=== PATIENT | male | born 1985 | race African-American/Black ===

== ENCOUNTER 2023-10-10 07:24 | Emergency (ER) | payer MEDICAID ==
[~2023-10-10] VITALS: Ht 182.9 cm; Wt 85.0 kg
[~2023-10-10 07:24] MED LIST: KEPP500 MT; POTA10TA20 MT
[2023-10-10 07:31] VITALS: O2SAT 99
[2023-10-10] MEDS: LEVETIRACETAM 500MG TABLET PO ONE (08:21)
[2023-10-10] MEDS: LEVETIRACETAM 500MG PREMIX 100 ML IV ONE (08:22)
[2023-10-10 10:06] VITALS: BP 154/93; PULSE 68; RESP 18; TEMP 98.3
== END 2023-10-10 10:09 | disposition home or self-care (01) ==
LOC: ER 07:24
DX: G40.909 Epilepsy, unspecified, not intractable, without status epilepticus (principal)
CPT/HCPCS: 99284; 96365; J1953

== ENCOUNTER 2023-10-16 11:37 | Emergency (ER) | payer MEDICAID ==
[~2023-10-16] VITALS: Ht 182.9 cm; Wt 70.0 kg
[2023-10-16 11:39] VITALS: TEMP 98.4; O2SAT 96
[2023-10-16 12:48] LABS: BASOPHILS % 0.4 % (0.0-2.0); EOSINOPHILS % 0.1 % (0.0-5.0); HEMATOCRIT. 38.5 % (42.0-52.0); LYMPHOCYTES % 13.4 % (20.0-50.0); MEAN CORPUSCULAR HEMOGLOBIN 31.7 pg (28.0-32.0); MEAN CORPUSCULAR HGB CONC 33.8 g/dL (31.0-37.0); MEAN CORPUSCULAR VOLUME 93.7 fL (80.0-94.0); MEAN PLATELET VOLUME 9.1 fl (7.4-10.4); MONOCYTES % 5.1 % (2.0-8.0); PLATELET 234 x1000/uL (130-400); RED BLOOD CELL COUNT 4.11 mill/uL (4.7-6.1); RED CELL DISTRIBUTION WIDTH 14.5 % (11.6-14.6)
[2023-10-16 12:51] LABS: CHLORIDE 100 mEq/L (98-107); SODIUM 138 mEq/L (136-145)
[2023-10-16 12:52] LABS: CARBON DIOXIDE 31 mEq/L (21-32)
[2023-10-16 12:57] LABS: CREATININE 1.1 mg/dL (0.6-1.3); GLUCOSE 99 mg/dL (70-105); UREA NITROGEN BLOOD 16 mg/dL (9-23)
[2023-10-16] MEDS: LEVETIRACETAM 500MG PREMIX 100 ML IV ONE ×2 (13:04)
[2023-10-16] MEDS: POTASSIUM CHLORIDE 20MEQ/PACKET PO NR (13:33)
[2023-10-16 17:04] VITALS: BP 128/81; PULSE 87; RESP 16
[2023-10-16] MEDS ORDERED: KEPP500 MT (17:59)
== END 2023-10-16 17:06 | disposition home or self-care (01) ==
LOC: ER 11:37
DX: R56.9 Unspecified convulsions (principal)
CPT/HCPCS: 99285; 96365; 70450; 80048; 85025; 36415; J1953

== ENCOUNTER 2023-11-03 07:06 | Emergency (ER) | payer MEDICAID ==
[~2023-11-03] VITALS: Ht 182.9 cm; Wt 76.0 kg
[2023-11-03 07:10] VITALS: TEMP 98; O2SAT 99
[2023-11-03 07:50] VITALS: BP 175/100; PULSE 65; RESP 12
[2023-11-03 07:50] LABS: BASOPHILS % 0.5 % (0.0-2.0); EOSINOPHILS % 0.8 % (0.0-5.0); HEMATOCRIT. 41.3 % (42.0-52.0); HEMOGLOBIN. 14.3 g/dL (14.0-18.0); LYMPHOCYTES % 18.2 % (20.0-50.0); MEAN CORPUSCULAR HEMOGLOBIN 31.6 pg (28.0-32.0); MEAN CORPUSCULAR HGB CONC 34.6 g/dL (31.0-37.0); MEAN CORPUSCULAR VOLUME 91.3 fL (80.0-94.0); MEAN PLATELET VOLUME 8.3 fl (7.4-10.4); MONOCYTES % 8.3 % (2.0-8.0); NEUTROPHILS % 72.2 % (40.0-76.0); PLATELET 244 x1000/uL (130-400); RED BLOOD CELL COUNT 4.53 mill/uL (4.7-6.1); WHITE BLOOD COUNT 6.9 x1000/uL (4.5-11.0)
[2023-11-03 07:54] LABS: CHLORIDE 102 mEq/L (98-107); POTASSIUM 3.6 mEq/L (3.5-5.1); SODIUM 142 mEq/L (136-145)
[2023-11-03 07:55] LABS: CALCIUM 9.8 mg/dL (8.7-10.4); CARBON DIOXIDE 34 mEq/L (21-32)
[2023-11-03 08:00] LABS: CREATININE 1.2 mg/dL (0.6-1.3); GLUCOSE 102 mg/dL (70-105); UREA NITROGEN BLOOD 19 mg/dL (9-23)
[2023-11-03 08:02] LABS: ALANINE AMINOTRANSFERASE 19 IU/L (10-49); ALBUMIN 4.8 g/dL (3.2-4.8); ASPARTATE AMINOTRANSFERASE 45 IU/L (<34); BILIRUBIN TOTAL 0.5 mg/dL (0.1-1.0)
[2023-11-03 08:03] LABS: PROTEIN TOTAL 7.9 g/dL (6.0-8.3)
[2023-11-03] MEDS: LEVETIRACETAM 500MG PREMIX 100 ML IV ONE ×2 (08:33→09:01)
[2023-11-03] MEDS: LACTATED RINGERS 1,000 ML IV SCH (08:34)
== END 2023-11-03 11:36 | disposition left against medical advice (07) ==
LOC: ER 07:06
DX: R56.9 Unspecified convulsions (principal)
CPT/HCPCS: 80053; 82962; 85025; 36415; 93005; 96365; 96375; 99284; J1953; Z7610 ×4

== ENCOUNTER 2023-11-28 06:28 | Emergency (ER) | payer MEDICAID ==
[~2023-11-28] VITALS: Ht 182.9 cm; Wt 73.0 kg
[2023-11-28 06:31] VITALS: O2SAT 100
[2023-11-28] MEDS: LEVETIRACETAM 1000MG PREMIX 100 ML IV ONE (07:04)
[2023-11-28 07:23] LABS: BASOPHILS % 0.3 % (0.0-2.0); HEMOGLOBIN. 13.3 g/dL (14.0-18.0); LYMPHOCYTES % 10.5 % (20.0-50.0); MEAN CORPUSCULAR HEMOGLOBIN 30.2 pg (28.0-32.0); MEAN CORPUSCULAR HGB CONC 33.2 g/dL (31.0-37.0); MEAN CORPUSCULAR VOLUME 91.1 fL (80.0-94.0); MEAN PLATELET VOLUME 8.4 fl (7.4-10.4); MONOCYTES % 3.1 % (2.0-8.0); NEUTROPHILS % 86.1 % (40.0-76.0); PLATELET 352 x1000/uL (130-400); RED BLOOD CELL COUNT 4.39 mill/uL (4.7-6.1); RED CELL DISTRIBUTION WIDTH 15.6 % (11.6-14.6); WHITE BLOOD COUNT 11.9 x1000/uL (4.5-11.0)
[2023-11-28 07:33] LABS: CHLORIDE 100 mEq/L (98-107); POTASSIUM 2.9 mEq/L (3.5-5.1); SODIUM 138 mEq/L (136-145)
[2023-11-28 07:34] LABS: CARBON DIOXIDE 22 mEq/L (21-32)
[2023-11-28 07:35] LABS: CALCIUM 9.8 mg/dL (8.7-10.4)
[2023-11-28 07:39] LABS: CREATININE 1.1 mg/dL (0.6-1.3)
[2023-11-28 07:40] LABS: ETHANOL BLOOD < 10 mg/dL (<10); GLUCOSE 116 mg/dL (70-105); UREA NITROGEN BLOOD 18 mg/dL (9-23)
[2023-11-28] MEDS: POTASSIUM CHLORIDE 20MEQ TABLET SR PO ONE (09:24)
[2023-11-28] MEDS: KCL 20MEQ/100ML PREMIX 100 ML IV ONE (10:37)
[2023-11-28 10:44] LABS: CLARITY URINE CLEAR (CLEAR); COLOR URINE YELLOW (YELLOW); GLUCOSE URINE NEGATIVE (NEGATIVE); KETONES URINE 3+ (NEGATIVE); LEUKOCYTE ESTERASE URINE NEGATIVE (NEGATIVE); NITRITE URINE NEGATIVE (NEGATIVE); OCCULT BLOOD URINE 1+ (NEGATIVE); PH URINE 5.5 (4.5-8.0); PROTEIN URINE 1+ (NEGATIVE); SPECIFIC GRAVITY URINE 1.014 (1.005-1.030); UROBILINOGEN URINE 0.2 E.U./dL (0.2-1.0)
[2023-11-28 10:58] LABS: SQUAMOUS EPITHELIAL CELL URINE RARE /lpf (RARE/1+)
[2023-11-28 10:59] LABS: WBC URINE 0-2 /hpf (0-2)
[2023-11-28 11:00] LABS: RBC URINE NONE SEEN /hpf (0-2)
[2023-11-28 11:01] LABS: BACTERIA URINE NONE SEEN
[2023-11-28 11:26] LABS: *AMPHETAMINES SCREEN URINE NEGATIVE (NEGATIVE)
[2023-11-28 11:27] LABS: *BENZODIAZEPINES SCREEN URINE PRESUMPTIVE POSITIVE (NEGATIVE)
[2023-11-28 11:28] LABS: *BARBITURATES SCREEN URINE NEGATIVE (NEGATIVE); *COCAINE SCREEN URINE NEGATIVE (NEGATIVE); CANNABINOID URINE SCREEN PRESUMPTIVE POSITIVE (NEGATIVE); ECSTASY MDMA SCREEN URINE NEGATIVE (NEGATIVE); METHADONE URINE SCREEN NEGATIVE (NEGATIVE); OPIATES URINE SCREEN NEGATIVE (NEGATIVE); PHENCYCLIDINE URINE SCREEN NEGATIVE (NEGATIVE)
[2023-11-28 11:38] VITALS: BP 143/101; PULSE 61; RESP 15; TEMP 98.8
== END 2023-11-28 12:00 | disposition home or self-care (01) ==
LOC: ER 06:28
DX: R56.9 Unspecified convulsions (principal); E87.6 Hypokalemia; F12.10 Cannabis abuse, uncomplicated
CPT/HCPCS: 80305; 80048; 81003; 80320; 85025; 36415; 96367; 96365; 99285; J1953; J3480; G0480

== ENCOUNTER 2023-12-11 09:10 | Emergency (ER) | payer MEDICAID ==
[~2023-12-11] VITALS: Ht 177.8 cm; Wt 80.0 kg
[2023-12-11 09:11] VITALS: O2SAT 97
[2023-12-11] MEDS: LEVETIRACETAM 1000MG PREMIX 100 ML IV ONE (09:26)
[2023-12-11 09:46] LABS: BASOPHILS % 0.5 % (0.0-2.0); EOSINOPHILS % 0.1 % (0.0-5.0); HEMATOCRIT. 42.1 % (42.0-52.0); HEMOGLOBIN. 13.8 g/dL (14.0-18.0); LYMPHOCYTES % 10.4 % (20.0-50.0); MEAN CORPUSCULAR HEMOGLOBIN 30.4 pg (28.0-32.0); MEAN CORPUSCULAR HGB CONC 32.7 g/dL (31.0-37.0); PLATELET 233 x1000/uL (130-400); RED BLOOD CELL COUNT 4.53 mill/uL (4.7-6.1); RED CELL DISTRIBUTION WIDTH 15.9 % (11.6-14.6); WHITE BLOOD COUNT 11.5 x1000/uL (4.5-11.0)
[2023-12-11 09:47] LABS: CHLORIDE 104 mEq/L (98-107); SODIUM 137 mEq/L (136-145)
[2023-12-11 09:48] LABS: CALCIUM 9.4 mg/dL (8.7-10.4); CARBON DIOXIDE 21 mEq/L (21-32)
[2023-12-11 09:53] LABS: CREATININE 1.1 mg/dL (0.6-1.3); GLUCOSE 115 mg/dL (70-105); UREA NITROGEN BLOOD 10 mg/dL (9-23)
[2023-12-11 10:02] LABS: ETHANOL BLOOD < 10 mg/dL (<10)
[2023-12-11 11:00] VITALS: BP 140/80; PULSE 66; RESP 16; TEMP 98.5
== END 2023-12-11 12:18 | disposition home or self-care (01) ==
LOC: ER 09:10 → EDBEDREQ 09:16 → EDBEDREQTM 10:30 → CANBEDREQ 12:17 → ER 12:18
DX: G40.909 Epilepsy, unspecified, not intractable, without status epilepticus (principal); F10.20 Alcohol dependence, uncomplicated; F12.90 Cannabis use, unspecified, uncomplicated; Y90.0 Blood alcohol level of less than 20 mg/100 ml
CPT/HCPCS: 80048; 80320; 85025; 36415; 96365; 99284; J1953; Z7610 ×2; G0480

== ENCOUNTER 2023-12-17 00:58 | Emergency (ER) | payer MEDICAID ==
[~2023-12-17] VITALS: Ht 185.4 cm; Wt 72.0 kg
[2023-12-17 01:01] VITALS: O2SAT 99
[2023-12-17] MEDS: SODIUM CHLORIDE 0.9% 1,000 ML IV ONE (01:15)
[2023-12-17 01:28] LABS: BASOPHILS % 0.4 % (0.0-2.0); EOSINOPHILS % 0.1 % (0.0-5.0); HEMATOCRIT. 42.6 % (42.0-52.0); HEMOGLOBIN. 13.9 g/dL (14.0-18.0); LYMPHOCYTES % 16.7 % (20.0-50.0); MEAN CORPUSCULAR HEMOGLOBIN 30.3 pg (28.0-32.0); MEAN CORPUSCULAR HGB CONC 32.6 g/dL (31.0-37.0); MEAN CORPUSCULAR VOLUME 92.9 fL (80.0-94.0); MEAN PLATELET VOLUME 8.9 fl (7.4-10.4); MONOCYTES % 6.1 % (2.0-8.0); NEUTROPHILS % 76.7 % (40.0-76.0); PLATELET 257 x1000/uL (130-400); RED BLOOD CELL COUNT 4.59 mill/uL (4.7-6.1); RED CELL DISTRIBUTION WIDTH 16.3 % (11.6-14.6)
[2023-12-17] MEDS: LORAZEPAM 2MG/ML INJ IV ONE (01:32)
[2023-12-17] MEDS: LEVETIRACETAM 1000MG PREMIX 100 ML IV ONE (01:32)
[2023-12-17 01:36] LABS: CHLORIDE 103 mEq/L (98-107); SODIUM 143 mEq/L (136-145)
[2023-12-17 01:37] LABS: CARBON DIOXIDE 24 mEq/L (21-32)
[2023-12-17 01:38] LABS: CALCIUM 9.5 mg/dL (8.7-10.4)
[2023-12-17 01:42] LABS: CREATININE 1.1 mg/dL (0.6-1.3); GLUCOSE 125 mg/dL (70-105)
[2023-12-17 01:43] LABS: ETHANOL BLOOD < 10 mg/dL (<10); UREA NITROGEN BLOOD 9 mg/dL (9-23)
[2023-12-17 01:50] LABS: POTASSIUM 2.8 mEq/L (3.5-5.1)
[2023-12-17] MEDS ORDERED: KEPP500 MT (03:55)
[2023-12-17] MEDS ORDERED: POTA-204 MT (03:55)
[2023-12-17] MEDS: POTASSIUM CHLORIDE 20MEQ/PACKET PO NR (04:16)
[2023-12-17] MEDS: KCL 20MEQ/100ML PREMIX 100 ML IV ONE (04:25)
[2023-12-17 06:26] VITALS: BP 132/86; PULSE 66; RESP 16; TEMP 98.1
== END 2023-12-17 06:27 | disposition home or self-care (01) ==
LOC: ER 00:58
DX: G40.901 Epilepsy, unspecified, not intractable, with status epilepticus (principal); F12.10 Cannabis abuse, uncomplicated; E87.6 Hypokalemia; Z91.148 Patient's other noncompliance with medication regimen for other reason
CPT/HCPCS: 80048; 80320; 85025; 36415; 96367; 96365; 96375; 99285; J1953; J2060; J3480; J7030; G0480

== ENCOUNTER 2023-12-28 17:59 | Emergency (ER) | payer MEDICAID ==
[~2023-12-28] VITALS: Ht 182.9 cm; Wt 82.0 kg
[~2023-12-28 17:59] MED LIST changes: +POTA-204 MT
[2023-12-28 18:04] VITALS: O2SAT 99
[2023-12-28 18:34] LABS: BASOPHILS % 0.7 % (0.0-2.0); EOSINOPHILS % 0.4 % (0.0-5.0); HEMATOCRIT. 38.9 % (42.0-52.0); HEMOGLOBIN. 12.9 g/dL (14.0-18.0); LYMPHOCYTES % 27.2 % (20.0-50.0); MEAN CORPUSCULAR HEMOGLOBIN 30.5 pg (28.0-32.0); MEAN CORPUSCULAR HGB CONC 33.3 g/dL (31.0-37.0); MEAN CORPUSCULAR VOLUME 91.6 fL (80.0-94.0); MEAN PLATELET VOLUME 8.2 fl (7.4-10.4); MONOCYTES % 11.4 % (2.0-8.0); NEUTROPHILS % 60.3 % (40.0-76.0); PLATELET 268 x1000/uL (130-400); RED BLOOD CELL COUNT 4.24 mill/uL (4.7-6.1); RED CELL DISTRIBUTION WIDTH 16.5 % (11.6-14.6)
[2023-12-28] MEDS: SODIUM CHLORIDE 0.9% 1,000 ML IV ONE (18:36)
[2023-12-28] MEDS: LEVETIRACETAM 1000MG PREMIX 100 ML IV ONE (18:36)
[2023-12-28 18:39] LABS: CHLORIDE 102 mEq/L (98-107); SODIUM 137 mEq/L (136-145)
[2023-12-28 18:40] LABS: CALCIUM 9.4 mg/dL (8.7-10.4); CARBON DIOXIDE 25 mEq/L (21-32)
[2023-12-28 18:45] LABS: CREATININE 1.2 mg/dL (0.6-1.3); GLUCOSE 92 mg/dL (70-105)
[2023-12-28 18:46] LABS: ETHANOL BLOOD < 10 mg/dL (<10); UREA NITROGEN BLOOD 11 mg/dL (9-23)
[2023-12-28 18:49] LABS: CARBAMAZEPINE < 0.4 ug/mL (4-12); PHENOBARBITAL < 3.0 ug/mL (15.0-40.0); PHENYTOIN < 2.0 ug/mL (10-20); VALPROIC ACID < 3.0 ug/mL (50-100)
[2023-12-28 19:51] LABS: CLARITY URINE CLEAR (CLEAR); COLOR URINE YELLOW (YELLOW); GLUCOSE URINE NEGATIVE (NEGATIVE); KETONES URINE TRACE (NEGATIVE); LEUKOCYTE ESTERASE URINE TRACE (NEGATIVE); NITRITE URINE NEGATIVE (NEGATIVE); OCCULT BLOOD URINE 1+ (NEGATIVE); PH URINE 5.5 (4.5-8.0); PROTEIN URINE 2+ (NEGATIVE); SPECIFIC GRAVITY URINE 1.015 (1.005-1.030)
[2023-12-28 19:59] LABS: *AMPHETAMINES SCREEN URINE NEGATIVE (NEGATIVE); *BARBITURATES SCREEN URINE NEGATIVE (NEGATIVE); *BENZODIAZEPINES SCREEN URINE NEGATIVE (NEGATIVE)
[2023-12-28 20:00] LABS: *COCAINE SCREEN URINE NEGATIVE (NEGATIVE); CANNABINOID URINE SCREEN PRESUMPTIVE POSITIVE (NEGATIVE); ECSTASY MDMA SCREEN URINE NEGATIVE (NEGATIVE); METHADONE URINE SCREEN NEGATIVE (NEGATIVE); OPIATES URINE SCREEN NEGATIVE (NEGATIVE); PHENCYCLIDINE URINE SCREEN NEGATIVE (NEGATIVE)
[2023-12-28 20:17] LABS: RBC URINE 0-2 /hpf (0-2); SQUAMOUS EPITHELIAL CELL URINE FEW /lpf (RARE/1+)
[2023-12-28 20:18] LABS: BACTERIA URINE NONE SEEN
[2023-12-28] MEDS: LORAZEPAM 2MG/ML INJ IV PRN (20:53)
[2023-12-28] MEDS: POTASSIUM CHLORIDE 20MEQ TABLET SR PO ONE (23:54)
[2023-12-29 02:31] VITALS: BP 134/82; PULSE 76; RESP 16; TEMP 98.3
== END 2023-12-29 02:39 | disposition home or self-care (01) ==
LOC: ER 17:59
DX: G40.909 Epilepsy, unspecified, not intractable, without status epilepticus (principal); Z79.899 Other long term (current) drug therapy
CPT/HCPCS: 80305; 80048; 81003; 80320; 80156; 80185; 80184; 80165; 85025; 87086; 36415; 96365; 96366; 96375; 99284; J1953; J2060; J7030; Z7610 ×7; G0480

== ENCOUNTER 2023-12-29 05:19 | Emergency (ER) | payer MEDICAID ==
[~2023-12-29] VITALS: Ht 182.9 cm; Wt 100.0 kg
[2023-12-29 05:23] VITALS: O2SAT 98
[2023-12-29 10:59] VITALS: BP 155/82; PULSE 87; RESP 16; TEMP 98.7
== END 2023-12-29 11:01 | disposition home or self-care (01) ==
LOC: ER 05:19
DX: R56.9 Unspecified convulsions (principal)
CPT/HCPCS: 82962; 93005; 99285

== ENCOUNTER 2024-02-20 11:04 | Emergency (ER) | payer MEDICAID ==
[~2024-02-20] VITALS: Ht 188 cm; Wt 75.0 kg
[2024-02-20 11:06] VITALS: O2SAT 98
[2024-02-20 11:23] VITALS: TEMP 36.66960
[2024-02-20] MEDS: LEVETIRACETAM 1000MG PREMIX 100 ML IV ONE (12:27)
[2024-02-20 12:36] LABS: BASOPHILS % 0.5 % (0.0-2.0); EOSINOPHILS % 0.1 % (0.0-5.0); HEMATOCRIT. 37.6 % (42.0-52.0); HEMOGLOBIN. 12.6 g/dL (14.0-18.0); LYMPHOCYTES % 13.9 % (20.0-50.0); MEAN CORPUSCULAR HEMOGLOBIN 31.1 pg (28.0-32.0); MEAN CORPUSCULAR HGB CONC 33.6 g/dL (31.0-37.0); MEAN CORPUSCULAR VOLUME 92.5 fL (80.0-94.0); MEAN PLATELET VOLUME 7.9 fl (7.4-10.4); MONOCYTES % 4.7 % (2.0-8.0); NEUTROPHILS % 80.8 % (40.0-76.0); PLATELET 221 x1000/uL (130-400); RED BLOOD CELL COUNT 4.06 mill/uL (4.7-6.1); RED CELL DISTRIBUTION WIDTH 14.8 % (11.6-14.6); WHITE BLOOD COUNT 9.1 x1000/uL (4.5-11.0)
[2024-02-20 12:44] LABS: CHLORIDE 105 mEq/L (98-107); POTASSIUM 3.5 mEq/L (3.5-5.1); SODIUM 141 mEq/L (136-145)
[2024-02-20 12:45] LABS: CALCIUM 9.5 mg/dL (8.7-10.4); CARBON DIOXIDE 32 mEq/L (21-32)
[2024-02-20 12:50] LABS: CREATININE 1.1 mg/dL (0.6-1.3); GLUCOSE 95 mg/dL (70-105); UREA NITROGEN BLOOD 9 mg/dL (9-23)
[2024-02-20] MEDS ORDERED: KEPP500 MT (14:22)
[2024-02-20 15:15] VITALS: BP 132/90; PULSE 84; RESP 12; O2SAT 98
== END 2024-02-20 15:42 | disposition home or self-care (01) ==
LOC: ER 11:04
DX: R56.9 Unspecified convulsions (principal); Z79.899 Other long term (current) drug therapy
CPT/HCPCS: 80048; 85025; 36415; 96365; 99284; J1953; Z7610 ×3

== ENCOUNTER 2024-03-06 14:55 | Emergency (ER) | payer MEDICAID ==
[~2024-03-06] VITALS: Ht 180.3 cm; Wt 73.0 kg
[2024-03-06 15:04] VITALS: O2SAT 97
[2024-03-06] MEDS: AMOXICILLIN/POTASSIUM CLAVULANATE 875/125MG TAB PO ONE (15:42)
[2024-03-06] MEDS: LEVETIRACETAM 500MG TABLET PO ONE (15:43)
[2024-03-06] MEDS: HYDROCODONE/ACETAMINOPHEN 5/325MG TABLET PO ONE (15:43)
[2024-03-06] MEDS: TETANUS, DIPHTHERIA, PERTUSSIS VAC/PF 0.5ML (>10YR OLD) IM ONE (15:45)
[2024-03-06] MEDS ORDERED: AMOX1TAB16 MT (16:43)
[2024-03-06] MEDS: BACITRACIN ZINC OINT UDPKT TOP ONE (16:54)
[2024-03-06] MEDS: LIDOCAINE HCL/EPINEPHRINE 1%-EPI 1:100,000 20ML VIAL INFIL ONE (16:54)
[2024-03-06 16:59] VITALS: BP 123/80; PULSE 100; RESP 18; TEMP 36.83628; O2SAT 97
== END 2024-03-06 16:59 | disposition home or self-care (01) ==
LOC: ER 14:55
DX: S61.051A Open bite of right thumb without damage to nail, initial encounter (principal); F12.90 Cannabis use, unspecified, uncomplicated; Z79.899 Other long term (current) drug therapy; W54.0XXA Bitten by dog, initial encounter; Y93.89 Activity, other specified; Y92.89 Other specified places as the place of occurrence of the external cause; Y99.8 Other external cause status
CPT/HCPCS: 73140; 90715; 12002; 90471; 99284; J3490; Z7610 ×3